=== PATIENT | male | born 1955 | race African-American/Black ===

== ENCOUNTER 2018-02-27 18:31 | Inpatient (IN) | payer MEDICAID, OTHER ==
[~2018-02-27] VITALS: Ht 152.4 cm; Wt 89.4 kg
[2018-02-27] MEDS ORDERED: SODIUM CHLORIDE 0.9% 500 ML IV ONE (19:05)
[2018-02-27 19:34] LABS: BASOPHILS % 0.7 % (0.0-2.0); EOSINOPHILS % 3.4 % (0.0-5.0); HEMATOCRIT. 40.9 % (42.0-52.0); HEMOGLOBIN. 13.9 g/dL (14.0-18.0); LYMPHOCYTES % 39.7 % (20.0-50.0); MEAN CORPUSCULAR HEMOGLOBIN 30.6 pg (28.0-32.0); MEAN CORPUSCULAR VOLUME 90.2 fL (80.0-94.0); MEAN PLATELET VOLUME 8.1 fl (7.4-10.4); MONOCYTES % 7.4 % (2.0-8.0); NEUTROPHILS % 48.8 % (40.0-76.0); PLATELET 211 x1000/uL (130-400); RED BLOOD CELL COUNT 4.53 mill/uL (4.7-6.1); RED CELL DISTRIBUTION WIDTH 12.6 % (11.6-14.6)
[2018-02-27 19:40] LABS: CHLORIDE 109 mEq/L (98-107); INR 1.1; PARTIAL THROMBOPLASTIN TIME 32.5 sec (23.4-31.0); PROTHROMBIN TIME 11.9 sec (9.4-11.6)
[2018-02-27 19:47] LABS: ETHANOL BLOOD < 10 mg/dL
[2018-02-27 19:50] LABS: LDL CHOLESTEROL 71 mg/dL (5-100)
[2018-02-27 22:46] LABS: CLARITY URINE CLEAR (CLEAR); COLOR URINE DARK YELLOW (YELLOW); KETONES URINE TRACE (NEGATIVE); LEUKOCYTE ESTERASE URINE NEGATIVE (NEGATIVE); NITRITE URINE NEGATIVE (NEGATIVE); OCCULT BLOOD URINE NEGATIVE (NEGATIVE); PROTEIN URINE NEGATIVE (NEGATIVE); SPECIFIC GRAVITY URINE 1.029 (1.005-1.030)
[2018-02-27 22:57] LABS: *AMPHETAMINES SCREEN URINE NEGATIVE (NEGATIVE); *BARBITURATES SCREEN URINE NEGATIVE (NEGATIVE)
[2018-02-27 22:58] LABS: *BENZODIAZEPINES SCREEN URINE NEGATIVE (NEGATIVE); *COCAINE SCREEN URINE NEGATIVE (NEGATIVE); CANNABINOID URINE SCREEN NEGATIVE (NEGATIVE); METHADONE URINE SCREEN NEGATIVE (NEGATIVE); OPIATES URINE SCREEN NEGATIVE (NEGATIVE); PHENCYCLIDINE URINE SCREEN NEGATIVE (NEGATIVE)
[2018-02-27] MEDS ORDERED: ONDANSETRON 4MG ODT PO PRN (23:15)
[2018-02-27] MEDS ORDERED: ASPIRIN 81MG TABLET PO ONE (23:15)
[2018-02-27] MEDS ORDERED: ACETAMINOPHEN 325MG TABLET PO PRN (23:15)
[2018-02-27] MEDS ORDERED: GUAIFENESIN 200MG/10ML SUGAR FREE UDC PO PRN (23:15)
[2018-02-27] MEDS ORDERED: MAGNESIUM/ALUMINUM HYDROXIDE/SIMETHICONE 30ML UDC PO PRN (23:15)
[2018-02-27] MEDS ORDERED: LORAZEPAM 2MG/ML CPJ IV PRN (23:15)
[2018-02-27] MEDS ORDERED: IPRATROPIUM/ALBUTEROL 0.5-3(2.5)MG/3ML NEB INH PRN (23:15)
[2018-02-27] MEDS ORDERED: DIPHENHYDRAMINE 50MG/ML VIAL IV PRN (23:15)
[2018-02-27] MEDS ORDERED: HYDROCODONE/ACETAMINOPHEN 5/325MG TABLET PO PRN (23:15)
[2018-02-27] MEDS ORDERED: DOCUSATE SODIUM 100MG CAPSULE PO PRN (23:15)
[2018-02-27] MEDS ORDERED: NA PHOS,M-B/NA PHOS,DI-BA ENEMA 118ML PR PRN (23:15)
[2018-02-27] MEDS ORDERED: CLONIDINE 0.1MG TABLET PO PRN (23:15)
[2018-02-27] MEDS ORDERED: MORPHINE SULFATE 4 MG/ML CPJ (NOT FOR IM USE) IV PRN (23:23)
[2018-02-28] VITALS (7 sets, daily range): BP systolic 105–136; BP diastolic 65–80
[2018-02-28 06:49] LABS: BASOPHILS % 0.5 % (0.0-2.0); EOSINOPHILS % 3.7 % (0.0-5.0); HEMOGLOBIN. 12.8 g/dL (14.0-18.0); LYMPHOCYTES % 44.6 % (20.0-50.0); MEAN CORPUSCULAR HEMOGLOBIN 30.3 pg (28.0-32.0); MEAN CORPUSCULAR VOLUME 90.2 fL (80.0-94.0); MEAN PLATELET VOLUME 8.7 fl (7.4-10.4); MONOCYTES % 7.5 % (2.0-8.0); NEUTROPHILS % 43.7 % (40.0-76.0); PLATELET 194 x1000/uL (130-400); RED BLOOD CELL COUNT 4.21 mill/uL (4.7-6.1); RED CELL DISTRIBUTION WIDTH 12.9 % (11.6-14.6)
[2018-02-28 07:01] LABS: CHLORIDE 108 mEq/L (98-107)
[2018-02-28 07:07] LABS: LDL CHOLESTEROL 63 mg/dL (5-100)
[2018-02-28 07:08] LABS: HDL CHOLESTEROL 36 mg/dL (40-59); T4 FREE 1.03 ng/dL (0.76-1.46)
[2018-02-28] MEDS: ENOXAPARIN 30MG/0.3ML SYR SUBCUT SCH ×2 (08:35→21:29)
[2018-02-28] MEDS: ASPIRIN 81MG EC TABLET PO SCH (08:35)
[2018-02-28 10:29] LABS: T4 FREE 1.08 ng/dL (0.76-1.46)
[2018-02-28 15:34] LABS: CREATINE KINASE 147 IU/L (39-308)
[2018-02-28 15:35] LABS: CREATINE KINASE MB FRACTION 1.6 ng/mL (0.5-3.6)
[2018-02-28] MEDS ORDERED: ASPI-1159 MT (19:37)
[2018-02-28] MEDS ORDERED: SIMV40TA5 MT (19:37)
[2018-02-28] MEDS ORDERED: AMLO5TAB88 MT (19:37)
[2018-03-01] VITALS: BP 106/68
[2018-03-01 01:04] LABS: CREATINE KINASE MB FRACTION 1.6 ng/mL (0.5-3.6)
[2018-03-01 04:00] VITALS: BP 112/72
[2018-03-01 07:39] LABS: CREATINE KINASE MB FRACTION 1.4 ng/mL (0.5-3.6)
[2018-03-01 08:00] VITALS: BP 110/65
[2018-03-01] MEDS: ASPIRIN 81MG EC TABLET PO SCH (08:54)
[2018-03-01] MEDS: ENOXAPARIN 30MG/0.3ML SYR SUBCUT SCH (08:55)
[2018-03-01 12:00] VITALS: BP 122/77
[2018-03-01 13:44] VITALS: BP 122/77
== END 2018-03-01 13:35 | disposition home or self-care (01) | DRG 47 ==
LOC: ER 18:43 → 5WST 22:23 → EDBEDREQTM 22:25 → EDBEDREQ 22:25 → ENRESERV 22:49
PROVIDERS: ADMIT Internal Medicine; ATTEND Internal Medicine
DX: G45.9 Transient cerebral ischemic attack, unspecified (principal); E87.8 Other disorders of electrolyte and fluid balance, not elsewhere classified; I69.354 Hemiplegia and hemiparesis following cerebral infarction affecting left non-dominant side; I10 Essential (primary) hypertension; D64.9 Anemia, unspecified; E78.5 Hyperlipidemia, unspecified; Z79.82 Long term (current) use of aspirin; Z79.899 Other long term (current) drug therapy; M54.12 Radiculopathy, cervical region
CPT/HCPCS: 36415; 70450; 71045; 72125; 80053; 80061; 80305; 81003; 82550; 82553; 83036; 83690; 83721; 83735; 83880; 84439; 84443; 84484; 85025; 85379; 85610; 85730; 93005; 93306; 93970; 99285; G0482; J1650; J7040

== ENCOUNTER 2023-06-24 13:05 | Emergency (ER) | payer MEDICARE, OTHER ==
[~2023-06-24] VITALS: Ht 175.3 cm; Wt 73.0 kg
[~2023-06-24 13:05] MED LIST: AMLO5TAB88 MT; ASPI-1497 MT; SIMV-46 MT
[2023-06-24 13:08] VITALS: BP 124/87; PULSE 110; RESP 18; TEMP 98.3; O2SAT 100
[2023-06-24 15:41] LABS: BASOPHILS % 0.4 % (0.0-2.0); HEMATOCRIT. 39.8 % (42.0-52.0); HEMOGLOBIN. 13.4 g/dL (14.0-18.0); LYMPHOCYTES % 27.6 % (20.0-50.0); MEAN CORPUSCULAR HEMOGLOBIN 30.9 pg (28.0-32.0); MEAN CORPUSCULAR HGB CONC 33.6 g/dL (31.0-37.0); MEAN CORPUSCULAR VOLUME 92.2 fL (80.0-94.0); MEAN PLATELET VOLUME 9.2 fl (7.4-10.4); MONOCYTES % 5.3 % (2.0-8.0); NEUTROPHILS % 65.7 % (40.0-76.0); PLATELET 167 x1000/uL (130-400); RED BLOOD CELL COUNT 4.32 mill/uL (4.7-6.1); RED CELL DISTRIBUTION WIDTH 12.8 % (11.6-14.6); WHITE BLOOD COUNT 6.3 x1000/uL (4.5-11.0)
[2023-06-24 15:51] LABS: INR 1.1; PROTHROMBIN TIME 11.9 sec (9.6-11.0)
[2023-06-24 15:58] LABS: CHLORIDE 109 mEq/L (98-107); INDEX HEMOLYSI 1 (1-3); INDEX ICTERIC 1 (1-4); INDEX LIPEMIC 1 (1-3); POTASSIUM 4.5 mEq/L (3.5-5.1); SODIUM 139 mEq/L (136-145)
[2023-06-24 16:14] LABS: ALANINE AMINOTRANSFERASE 36 IU/L (13-61); ALBUMIN 3.4 g/dL (3.4-5.0); ASPARTATE AMINOTRANSFERASE 22 IU/L (15-37); CALCIUM 9.1 mg/dL (8.5-10.1); CARBON DIOXIDE 25 mEq/L (21-32); CREATININE 0.8 mg/dL (0.6-1.3); GLUCOSE 97 mg/dL (70-105); NT PRO B-TYPE NATRIURETIC PEP 572 pg/mL (5-125); PHOSPHORUS 2.4 mg/dL (2.5-4.9); PROTEIN TOTAL 6.7 g/dL (6.0-8.3); TROPONIN I HIGH SENSITIVITY 76 ng/L (<78); UREA NITROGEN BLOOD 11 mg/dL (7-21)
[2023-06-24 17:37] LABS: TROPONIN I HIGH SENSITIVITY 81 ng/L (<78)
== END 2023-06-24 20:45 | disposition home or self-care (01) ==
LOC: ER 13:34
DX: R53.1 Weakness (principal); I11.9 Hypertensive heart disease without heart failure; Z86.73 Personal history of transient ischemic attack (TIA), and cerebral infarction without residual deficits; Z98.890 Other specified postprocedural states
CPT/HCPCS: 36415; 80053; 83735; 83880; 84100; 84484; 85025; 93005; 99284